=== PATIENT | female | born 1945 | race Caucasian/White ===

== ENCOUNTER 2016-09-23 20:20 | Observation (INO) | payer MEDICARE ==
[~2016-09-23] VITALS: Ht 158.8 cm; Wt 50.5 kg
[~2016-09-23 20:20] MED LIST: AZEL137S11 NS; BETA15OI3 TP; BRIN8DRO OP; CALC-140 PO; DOXY50CA2 PO; IPRA4AER IH; KLO1T PO; LACT1CAP44 PO; LATA2.5D6 BOTH_EYES; LEVO50TA83 PO; METR45GE TOP; PARO40TA47 PO; POTA10CA42 PO; PROP1DRO BOTH_EYES; SALINE NASAL; TRAZ-118 PO; TRIA10.8 NS
[2016-09-23 20:27] VITALS: BP 144/70; PULSE 82; RESP 23; O2SAT 96
--- NOTE | 2016-09-23 20:44 | ED.REPORT ---
HPI-General Illness Date of Service Sep 23, 2016 ED Provider: Davis Serra MD Pt is a 71 y.o. female with a hx of recurrent angioimmunoblastic T-cell lymphoma , HTN, thyroid disease, and anxiety who presents to the ED via EMS accompanied by her after a witnessed seizure prior to arrival. Pt's states that she has been increasingly anxious for the past several days. He states that the pt went to stand up from the couch and proceeded to fall onto her right side and began to tense up, with what he state was seizure like activity. Per EMS pt was reportedly post-ictal for 20minutes and was not communicating, after that time pt became verbal but was confused. EMS states that pt was noticeably improving in their care. Pt denies any memory of the event and denies any current pain, fever, chills, nausea, vomiting, and SOB. She does states that she is anxious. Pt reports one prior seizure that occurred "several years ago", she is not currently on anti-seizure medication. Pt had a chemotherapy treatment 2 days ago. Nursing Notes Stated Complaint: SEIZURE Chief Complaint: Seizure Nursing Notes Reviewed: Yes Allergies: Coded Allergies: amoxicillin trihydrate (Verified Allergy, Severe, RASH, 01/21/16) amoxicillin (Verified Allergy, Unknown, 09/23/16) metronidazole (Verified Allergy, Unknown, 09/23/16) minocycline (Verified Allergy, Unknown, 09/23/16) mirtazapine (Verified Allergy, Unknown, 09/23/16) prednisone (Verified Allergy, Unknown, 09/23/16) Uncoded Allergies: BANDAIDS/TAPES/STERI STRIPS (Allergy, Unknown, 02/09/04) Scheduled Albuterol/Ipratropium (Combivent Respimat Inhal [place]) 120 Spr/4 Gm Inhaler 1 PUFF IH QID Betamethasone Dipropionate (Betamethasone Dipropionate) 15 Gm Oint...g. 15 GM TP BID Brinzolamide/Brimonid Tart (Simbrinza 1%-0.2% Eye Drops) 8 Ml Drops.susp 8 ML OP BID Calcium Carbonate/Vitamin D3 (Calcium + Vitamin D Tablet) 1 Each Tablet 1 EACH PO DAILY Clonazepam (Clonazepam) 1 Mg Tablet 1 MG PO BID Doxycycline Hyclate (Doxycycline Hyclate) 50 Mg Capsule 50 MG PO DAILY Lactobacillus Acidophilus (Acidophilus Lactobacillus) 1 Each Capsule 2 EACH PO BID Latanoprost (Latanoprost) 2.5 Ml Drops 1 GTT BOTH_EYES HS Levothyroxine (Synthroid) 50 Mcg Tablet 50 MCG PO DAILY Metronidazole (Metronidazole Gel) 1 Applic/0.25 Gm Gel 1 APPLIC TOP BID Paroxetine (Paxil) 40 Mg Tablet 60 MG PO HS Potassium Chloride (Potassium Chloride) 10 Meq Capsule.er 20 MEQ PO DAILY TAKE WITH FOOD Trazodone (Trazodone) 100 Mg Tablet 150-200 MG PO HS Scheduled PRN ([Nasal Saline]) 1-2 SPRAY NASAL DAILY PRN PRN For Congestion Azelastine HCl (Azelastine HCl) 137 Mcg/0.137 Ml [place].pump 137 MCG NS DAILY PRN PRN For Congestion Propylene Glycol/Peg 400/Pf (Systane 0.3-0.4% Eye Drops) 1 Each [place] 1 EACH BOTH_EYES DAILY PRN PRN For Eye Irritation Triamcinolone Acetonide (Nasacort) 10.8 Ml [place] 1-2 SPRAYS NS DAILY PRN PRN For Congestion General Time Seen by MD: 20:44 Chief Complaint Seizure Hx Obtained From: Patient, Spouse Arrived By: Ambulance Sudden in Onset?: Yes Onset Occurred: 16 - 30 minutes ago Severity: Current: No pain currently Severity: Maximum: No pain Past Medical History Past Medical History Notes: Oncologist Dr. Quiñones Patient just started romidepsin Past Medical History History of recurrent angioimmunoblastic T-cell lymphoma Mode history of stage II breast cancer in 2002, a more recent history of peripheral T-cell lymphoma diagnosed in 2012 status post 6 cycles of CHOP, with subsequent relapse and a CT scan on October 2015 showing recurrent lymphoma 0cataracts hypertension asthma osteoarthritis anxiety depression beast cancer T-cell lymphoma thyroid disease Past Surgical History Excisional lymph node biopsy of right axillary lymph node. Port-O-cath Family History Noncontributory Smoking History Never Smoker Social History Alcohol Use: Denies alcohol use Drug Use: Denies drug use Other Social History: Good social support, , Local resident Ambulatory Status Independent Review of Systems Full Review of Systems Constitutional: Denies: Chills, Fever Respiratory: Denies: Shortness of breath Cardiovascular: Denies: Chest pain GI: Denies: Abdominal pain, Nausea, Vomiting Musculoskeletal: Denies: Back pain, Neck pain Neurologic: Reports: Confusion, Seizure, Denies: Headache Psychiatric: Reports: Anxiety Complete sys rev & neg: except as marked. Physical Exam Vital Signs Vital Signs Date Time Temp Pulse Resp B/P Pulse Ox O2 Delivery O2 Flow Rate FiO2 09/23/16 20:27 36.7 82 23 144/70 96 Room Air Initial VS: Reviewed Abdomen / GI: No distention Extremities: Vascular intact, Neuro intact Psychiatric: Mood/affect normal, Behavior normal, Normal thought content General/Constitutional: Awake, Alert, No acute distress, Well appearing, Well developed, Well hydrated, Well nourished, Not toxic appearing Head / Eyes: Atraumatic, Normocephalic, PERRL, EOMI Neck: Atraumatic, Supple, Non-tender, No midline vertebral tend, No tracheal deviation No step off or deformity present Respiratory / Chest: Atraumatic, Breath sounds NL, Breath sounds = bilat, No respiratory distress Cardiovascular: Heart rate NL, Heart sounds NL, Cap refill not delayed, Peripheral circulation NL Back: Atraumatic, Inspection NL, Non-tender, No midline vertebral tend Skin: Atraumatic, Warm, Dry, Intact Color / Condition: Positive: Rash present Rash / Lesion Notes: Diffuse red raised rash to RUE from shoulder to wrist Neurologic: Oriented X3, Speech NL Slight left-sided facial droop Subtle left-sided dysmetria Interpretation & Diagnostics Lab Results Interpretation Result Diagram: 09/23/16202309/23/162023 Test 09/23/16 20:24 09/23/16 20:25 White Blood Count 5.3th/mm3 (3.8-10.1) Red Blood Count 4.41mil/mm3 (3.90-5.20) Hemoglobin 14.1g/dL (12.0-15.6) Hematocrit 42.9% (35.0-46.0) Mean Corpuscular Volume 97.3fL (81-100) Mean Corpuscular Hemoglobin 32.0pg (27.0-35.0) Mean Corpuscular Hemoglobin Concent 32.9% (32.0-37.0) Red Cell Distribution Width 13.2% (12.3-15.4) Platelet Count 102bil/L (150-400) Neutrophils (%) (Auto) 60.0% (40-74) Lymphocytes (%) (Auto) 20.9% (14-46) Monocytes (%) (Auto) 14.9% (4-12) Eosinophils (%) (Auto) 3.2% (0-5) Basophils (%) (Auto) 0.8% (0-3) Prothrombin Time 10.6sec (8.1-12.5) Prothromb Time International Ratio 0.99ratio Activated Partial Thromboplast Time 25.7sec (22.8-33.0) Hold Blue Top Tube Received (Received) Sodium Level 139mEq/L (134-144) Potassium Level 4.2mEq/L (3.5-5.2) Chloride Level 99mEq/L (97-108) Carbon Dioxide Level 15mmol/L (18-29) Blood Urea Nitrogen 28mg/dL (8-27) Creatinine 0.90mg/dL (0.57-1.00) Estimat Glomerular Filtration Rate 88mL/min (>59) Glucose Level 128mg/dL (60-99) Calcium Level 9.6mg/dL (8.5-10.1) Total Bilirubin 0.4mg/dL (0.0-1.2) Aspartate Amino Transf (AST/SGOT) 22U/L (0-50) Alanine Aminotransferase (ALT/SGPT) 32U/L (0-32) Alkaline Phosphatase 70U/L (25-165) Troponin T 0.010ug/L (0.0-0.011) Total Protein 7.9g/dL (6.4-8.4) Albumin 4.3g/dL (3.4-5.0) Hold [place] Top Tube Received (Received) Alcohols < 10mg/dL (0-10) Hold Purple Top Tube Received (Received) ECG Interpretation Time: 21:21 Interpreted by: ED physician Normal ECG Interpretation: Normal rate (83), Normal sinus rhythm, No acute ischemic changes, Normal QRS, Normal intervals, No change from prior ECGs () CT Head Interpretation CT HEAD WITHOUT CONTRAST CONCLUSION: Mild involutional changes. No acute intracranial abnormality. Radiologist: Naresh Carver MD CT ANGIOGRAM HEAD CONCLUSION: No evidence of an aneurysm, significant stenosis or major branch occlusion. CT C-Spine Interpretation CT ANGIOGRAM OF NECK: IMPRESSION: No carotid or verterl artery stenosis, dissection, or occlusion. Re-Eval/Medical Decision Med Decision/Clinical Course 71F w/ possible seizure earlier this evening w/ extended postictal period. CTA w /o evidence of acute stroke, however concern for possible CVA persists and patient would likely benefit from MRI. No obvious alternative etiology that would have provoked her seizure. Plan admission for further eval and mgmt Source of Hx: Old records Time of Eval: 00:08 Re-Evaluation/Progress Note: Pt rechecked. Discussed lab results, imaging, and need for admission. Pt understands and agrees with plan. Consultation : Referral / Consult Name: Jack Francis MD Consulted With: Hospitalist Call Returned at: 00:14 Station Installation Supervisor: Will see patient, Agrees with eval, Agrees with plan, Accepts admit Note: Discussed pt condition, accepts admit. Counseled Regarding: Diagnosis, Lab results, Need for follow-up, When/why to return to ED Discharge & Departure Primary Impression: Seizure Disposition: ADMITTED TO HOSPITAL Discharge Condition All VS Reviewed: Yes Condition: Improved Referrals: Wendy Carorll MD (PCP) Mateoibe Attestation Portions of this note were transcribed by Jazmin Steele. I, Dr. Serra personally performed the history, physical exam and medical decision-making; I reviewed and confirmed the accuracy of the information in the transcribed note. Signed by: Alicia Benz, 09/24/2016 and 0016 copies to: Wendy Carroll MD, William B MD Sep 23, 2016 20:44 JAZMIN STEELE Sep 23, 2016 20:52
[2016-09-23] MEDS ORDERED: 0.9% Sodium Chloride 1,000 ML IV ONE (21:01)
[2016-09-23 21:13] LABS: BASOPHILS % (AUTO) 0.8 % (0-3); EOSINOPHILS % (AUTO) 3.2 % (0-5); MONOCYTES % (AUTO) 14.9 % (4-12); Mean Corpuscular Volume 97.3 fL (81-100); Platelet Count 102 bil/L (150-400)
[2016-09-23 21:20] LABS: INR 0.99 ratio
[2016-09-24] VITALS (7 sets, daily range): BP systolic 135–151; BP diastolic 80–88; PULSE 66–83; RESP 14–18; O2SAT 94–98
[2016-09-24] MEDS ORDERED: 0.9% Sodium Chloride 1,000 ML IV SCH (01:47)
[2016-09-24] MEDS ORDERED: Polyethylene Glycol (PEG) 17 Gm Powder PO PRN (01:50)
[2016-09-24] MEDS ORDERED: Alum-Mag Hydrox-Simeth 30 mL Suspension PO PRN (01:50)
[2016-09-24] MEDS ORDERED: Ondansetron 2 mg/mL 2 mL Inj IVPUSH PRN (01:50)
--- NOTE | 2016-09-24 02:06 | PCM.HPMED ---
Subjective Date of Service Sep 24, 2016 Primary Provider: Admitting Physician: Primary Care Physician: Wendy Carroll MD Attending Physician: Admit Status: From the Emergency Department Chief Complaint: Seizure History of Present Illness: This is a 71-year-old female with past medical history significant for seizure 20 years ago and was on Dilantin for several years, recurrent angioimmunoblastic T-cell lymphoma currently on chemotherapy, estrogen receptor positive left breast cancer in remission, generalized anxiety disorder, hypothyroidism, and hypertension who presents after observed seizure. The patient does not recall the seizure. She states that over the last 48 hours she has been tremulous and fatigued. She also describes a frontal headache that is achy, with severity of 6/10, and not associated with phonophobia or photophobia. Family members are not present to describe the seizure but emergency department notes state that she went to stand up from the couch and fell onto her right side and then began to tense up. EMS reported 20 minutes of postictal state with gradual return to baseline. Of note her last chemotherapy treatment was 2 days ago. She denies any chest pain or pressure, shortness of breath, diaphoresis, nausea, vomiting, diarrhea, constipation, dysuria. In the emergency department initial vital signs were temperature 36.7 Celsius, pulse 82, respiratory rate 23, blood pressure 144/70, satting at 96% on room air. CBC showed platelet count of 102 and no other concerning abnormalities. CMP showed carbon dioxide 15, BUN 28, creatinine 0.90, glucose 128, troponin 0.010. PT 10.6, INR 0.99. Alcohol less than 10. A bolus of NS and Ativan was given in the ED. Review of Systems: A comprehensive review of systems was conducted with the patient and found to be negative except as above in the History of Present Illness. Allergies Coded Allergies: amoxicillin trihydrate (Verified Allergy, Severe, RASH, 01/21/16) amoxicillin (Verified Allergy, Unknown, 09/23/16) metronidazole (Verified Allergy, Unknown, 09/23/16) minocycline (Verified Allergy, Unknown, 09/23/16) mirtazapine (Verified Allergy, Unknown, 09/23/16) prednisone (Verified Allergy, Unknown, 09/23/16) Uncoded Allergies: BANDAIDS/TAPES/STERI STRIPS (Allergy, Unknown, 10/20/04) Home Medications Acidophilus capsule take 2 Capsule by Oral route 2 times every day azelastine 137 mcg (0.1 %) nasal spray aerosol spray 1 spray by intranasal route daily as needed for congestion Calcium 500 + D 500 mg (1,250 mg)-200 unit tablet 1 daily clonazepam 1 mg tablet take 1 tablet by mouth 2 times daily Combivent 18 mcg-103 mcg/Actuation Aerosol Inhaler inhale 2 puff by INHALATION route 4 times every day as needed hydroxyzine HCl 25 mg tablet take 1 tablet by oral route every 6 hours as needed for anxiety latanoprost 0.005 % eye drops instill 1 drop by ophthalmic route every day into affected eye(s) in the evening levothyroxine 50 mcg tablet TAKE 1 TABLET BY MOUTH DAILY for thyroid Paxil 20 mg tablet take 3 tablet (60MG) by oral route every day for mood potassium chloride ER 10 mEq capsule,extended release take 2 capsule by ORAL route every day with food Simbrinza 1 %-0.2 % eye drops,suspension instill 1 drop by ophthalmic route 2 times every day into affected eye(s) Systane 0.4 %-0.3 % eye drops daily trazodone 100 mg tablet take 1.5 tablets by ORAL route every evening after meal for sleep/mood triamcinolone acetonide 55 mcg nasal spray aerosol 1 spray in each nostril as needed for congestion may give 1-2 sprays PRN vancomycin 125 mg capsule take 125mg by mouth every 72 hours for c diff PMH Recurrent angioimmunoblastic T-cell lymphoma. Current regimen is romidepsin 10 mg/m2 IV every two weeks.She was previously treated with six cycles of first- line CHOP chemotherapy ending in April 2013 and subsequently had widespread systemic relapse in October 2015. History of stage II estrogen receptor positive left breast cancer status post lumpectomy, CMF chemotherapy, radiotherapy, and 5 years of endocrine therapy including tamoxifen and later Aromasin all completed in 2008 without recurrence. Generalized anxiety disorder Hypothyroidism Hypertension Depression Glaucoma Asthma Osteoarthritis Insomnia Some outpatient notes mention Sicca symptoms without overt diagnosis of Sicca syndrome Surgical History Appendectomy. Sinus surgery. Left lumpectomy. Right axillary lymphadenectomy with left subclavian venous Port-A-Cath placement performed by Dr. Jimmie Gomez on 11/15/2015. Family History Father with melanoma and hypertension. Sister with breast cancer in remission status post bilateral mastectomy. Mother who of congestive heart failure. Denies family history of colon cancer, IBD, or celiac disease. Social History Hx Alcohol Use: No Hx Substance Use: No Hx Tobacco Use: No Smoking Status: Never Smoker Exam Vital Signs Vital Sign - Last Date Time Temp Pulse Resp B/P Pulse Ox O2 Delivery O2 Flow Rate FiO2 09/23/16 20:27 36.7 82 23 144/70 96 Room Air Intake and Output 09/23/16 09/23/16 09/24/16 Cumulative From/Thru 15:00 23:00 07:00 09/23/16 20:27 - 09/23/16 21:29 Intake Total 1000 ml 1000 ml Balance 1000 ml 1000 ml Intake IV Total 1000 ml 1000 ml Exam General: No acute distress, well-developed, well-nourished, appropriately interactive HEENT: Normocephalic, atraumatic. External ears without defect. Pupils equal, round, and reactive to light and accommodation. Anicteric sclerae, moist conjunctivae, and no lid lag. Oropharynx free of erythema and cobble stoning with moist mucosa. Neck: Supple with full range of motion. No jugular venous distension. No bruits. No lymphadenopathy or thyromegaly. Cardiovascular: Regular rate and rhythm with no murmurs, rubs, or gallops appreciated Chest: srinivasa-cath left, no erythema or tenderness to palpation in area around cath.. Pulmonary: Clear to auscultation bilaterally with no crackles, wheezes, or rhonchi. Normal respiratory effort with no use of accessory muscles. Abdomen: Bowel tones present. Soft, nontender, nondistended. No hepatosplenomegaly or masses appreciated. Extremities: No clubbing, cyanosis, edema, or lymphadenopathy appreciated. Skin: Normal temperature, turgor, and texture; no rash, ulcers, or subcutaneous nodules appreciated. Neurological: Cranial nerves grossly intact. Normal muscle strength, tone, and bulk. Reflexes, coordination, and sensory function within normal limits. No known gait impairment. Jarrell to heel test within normal limits. No upper or lower extremity drift. Sensation throughout upper and lower extremity intact. Psychiatric: Normal mood and affect. Alert and oriented to person, place, and time. Lab and Diagnostics Result Diagram: 09/23/16202309/23/162023 X-Rays, CTs and MRIs CT HEAD WITHOUT CONTRAST CONCLUSION: Mild involutional changes. No acute intracranial abnormality. CT ANGIOGRAM HEAD CONCLUSION: No evidence of an aneurysm, significant stenosis or major branch occlusion. Radiologist: Naresh Carver MD Assessment & Plan This is a 71-year-old female with past medical history significant for seizure 20 years ago and was on Dilantin for several years, recurrent angioimmunoblastic T-cell lymphoma on chemotherapy, estrogen receptor positive left breast cancer in remission, generalized anxiety disorder, hypothyroidism, and hypertension who presents after observed seizure. Patient did describe being tremulous and fatigued over the last several days. We will check thyroid levels. Cause of seizure includes: electrolyte disturbance, hyperthyroidism, withdrawal (patient states she takes her benzodiazepine everyday), drug induced , intracranial (abscess, cva, hemorrhage). CT of head showed no concerning abnormality. Seizure, present admission, ongoing: -Based on family members descriptions to emergency department physician this was most likely a seizure. -We will continue to monitor overnight. -Ativan if seizure recurs. -Consider neurology referral. -MRI seizure protocol ordered. -Consider EEG in am. Hypothyroidism, present on admission: -Free T4 and TSH ordered. -Continue levothyroxine 50 g tablet Generalized anxiety disorder, present on admission, ongoing: -Patient was described as having significant anxiety over the last several days. -Consider adding anxiolytic in the morning. -Continue home clonazepam, Paxil. Recurrent angioimmunoblastic T-cell lymphoma, present on admission: -Patient last had chemo two days ago. -Will need follow-up as outpatient. Glaucoma, present on admission, ongoing: -Continue home meds Sleep disturbance, present on admission, stable: -Continue trazodone Med req not complete yet. Day team will need to complete. Hold on DVT prophylaxis. Patient is admitted under observation status with expected length of stay less than 2 midnights due to severity of presenting symptoms, risk of adverse event, and complexity of treatment plan. Pain Evaluation: Adequate Pain Control Resuscitation Status: DNR/DNI:Do Not Resuscitate/Intubate Attending Statement The patient was seen and examined together with Dr. Steward on 09/24 and I agree with the history, exam and plan as outlined in the note above. Jurgen Steward DO Sep 24, 2016 01:00 Jack Francis MD Sep 24, 2016 03:17
[2016-09-24 03:18] LABS: APPEARANCE,URINE CLEAR (CLEAR,HAZY); COLOR,URINE YELLOW (YELLOW); PH,URINE 6.5 (5.0-8.0); UROBILINOGEN,URINE NORMAL (NORMAL)
--- NOTE | 2016-09-24 03:18 | NUR ---
ADMIT; 71 yr old female admitted to room 1008 via gurney at approx. 0300. Pt doesn't remember seizure incident at home which brought her here. See admit screens. Pt states feels "shaky". Received ativan in e.r. Seizure pads on bed. Alert and oriented. Face symmetrical, tongue midline. MED REC; pt unable to verify med rec. list she had with her - stated didn't have her glasses and still shaky from seizure incident. PLAN; leave message/pass on to day shift rn that med rec needs to be verified. Addendum: 09/24/16 at 0352 by NAM GUPTA RN Pt. states recent chemo about 3 days ago.
[2016-09-24 03:19] LABS: OCCULT BLOOD,URINE TRACE (NEGATIVE)
[2016-09-24] MEDS ORDERED: LORazepam 1 mg Tablet PO ONE ×2 (04:20→11:15)
--- NOTE | 2016-09-24 04:26 | NUR ---
PSYCH; pt c/o feeling "shaky". Requesting something for her nerves. Hospitalist "khadijah paged". No seizure activity noted.
--- NOTE | 2016-09-24 06:11 | NUR ---
PSYCH; pt states feels more relaxed now, but is concerned of panicky feelings if she has an mri.
[2016-09-24] MEDS ORDERED: HYDR-656 PO (08:38)
--- NOTE | 2016-09-24 09:01 | DRSVH ---
PROCEDURE: CT ANGIO HEAD AND NECK (P) INDICATIONS: SEIZURE, CONFUSION TECHNIQUE: Pre-contrast 4.5 mm thick sections acquired from the foramen magnum to the vertex. After the adminis tration of intravenous contrast, 1 mm thick sections acquired from the aortic arch through the [place]. Post-contrast 4.5 mm thick sections then re-acquired from the foramen magnum to the vert ex. 3-dimensional [id number]-thsmtlijpu (MIP) and/or volume rendering reformats were acquired of the central intracranial vasculature and neck separately. For radiation dose reduction, the foll owing was used: automated exposure control, adjustment of mA and/or kV according to patient size. COMPARISON: None. FINDINGS: Image quality: Excellent. BRAIN: CSF spaces: Ventricles are normal in size and shape. Basal cisterns are patent. No extra-axial flu id collections. Brain: No midline shift. No intracranial bleeds or masses. [place]-white matter interface appears int act. Skull and face: Calvarium and facial bones appear intact, without suspicious lesions. Orbits appear normal. Sinuses: Sinuses and mastoids are clear. HEAD CT ANGIOGRAPHY: Anterior circulation: Intracranial internal carotid arteries are normal in size and flow. Atheroscle rotic calcifications noted in the cavernous segments of the internal carotid arteries bilaterally whi ch do not cause measurable stenosis. The flow within the paired anterior cerebral arteries is normal. 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 The flow wit hin the middle cerebral arteries is normal and symmetric. The anterior communicating artery is seen. No aneurysms are seen. Posterior circulation: Visualized portions of the vertebral arteries demonstrate normal caliber, and join to form a normal appearing basilar artery. Flow within the posterior cerebral arteries is norm al and symmetric. No aneurysms are seen. NECK CT ANGIOGRAPHY: Carotid system: The great vessels demonstrate bovine variant anatomy as they arise from the aortic a rch. The origins of the common carotid arteries appear patent. The common carotid arteries demonstr ate normal caliber and courses. The bifurcation regions are both widely patent. The internal caroti d arteries demonstrate normal calibers and courses. Posterior circulation: The origins of the vertebral arteries both appear widely patent. The more putnam perior extracranial portions of both vertebral arteries also demonstrate normal courses and calibers. They join to form a normal appearing basilar artery. Soft tissues: Left chest wall Port-A-Cath is noted. Visualized neck soft tissues demonstrate no susp icious abnormalities. Pleural-parenchymal scarring noted in the apex of the left lung. Bones: Spine degenerative disc disease and facet arthropathy. No suspicious bony lesions. Visualize d cervical spine appears normally aligned. IMPRESSION: 1. No acute intracranial disease process. 2. No evidence of large vessel occlusion. No hemodynamically significant vascular stenosis. Dictated by: Gunjan Castro MD, PhD on 09/24/2016 at 8:51 Approved by: Gunjan Castro MD, PhD on 09/24/2016 at 9:00
--- NOTE | 2016-09-24 10:14 | NUR ---
Case Management: LIRIANO and Medicare Part D Pamphlet delivered and explained to pt. Signed original placed in chart. Copy left at bedside. Carrie Flores RN
[2016-09-24] MEDS ORDERED: levETIRAcetam 500 mg Tablet PO STA (11:24)
[2016-09-24] MEDS: LORazepam 0.5 mg Tablet PO PRN ×3 (11:45→20:46)
[2016-09-24] MEDS: Heparin 5,000 Unit/mL Inj SUBQ SCH ×2 (11:48→17:38)
--- NOTE | 2016-09-24 13:33 | DRSVH ---
PROCEDURE: MRI SEIZURE BRAIN WITH AND WITHOUT CONTRAST ([id number]) INDICATIONS: Seizure TECHNIQUE: Noncontrast axial T1 spin echo, axial T2 fast spin echo, sagittal and axial FLAIR, axial gradient ech o, axial diffusion and ADC, coronal thin-slice T2 FSE through the brain. Optional contrast, followed by axial and coronal 3D VIBE or T1 spin echo with fat saturation sequences through the brain. COMPARISON: CTA brain and neck 09/23/2016; FINDINGS: Image quality: Excellent. CSF spaces: Ventricles are normal in size and shape. Basal cisterns are patent. No extra-axial flu id collections. Brain: No intracranial bleeds or mass effects. No abnormal intracranial enhancement. Monteiro-white ma tter interface appears intact. Diffusion weighted images demonstrate no acute ischemic insults. Ther e are increased flair signal changes in the left basal ganglia and scattered bilateral frontoparietal lobes without associated restricted diffusion or contrast-enhancement. Brainstem appear normal. Nor mal intravascular flow voids are present. The hippocampal regions appear normal and symmetric in mor phology. Skull and face: Calvarial marrow signal is normal. Orbits appear normal. Sinuses: Sinuses and mastoids are clear. IMPRESSION: 1. No intracranial mass lesion or abnormal contrast enhancement. No acute infarct. 2. Left sided increased T2 signal changes likely related to chronic ischemic changes Dictated by: Jose Miguel Ware M.D. on 09/24/2016 at 13:19 Approved by: Jose Miguel Ware M.D. on 09/24/2016 at 13:31
--- NOTE | 2016-09-24 16:27 | NUR ---
Social Work: Initial Assessment D: EMR reviewed. Pt is a 71 y/o female [place] for seizure. SW met with pt at bedside to conduct initial assessment. Pt was alert and oriented x3. SW explained role and wrote phone number on white board. Pt confirmed she has completed DPOA/advanced directive ppw and SW encouraged pt to provide a copy to the hospital. Pt's insurance is [employer] and PCP is Wendy Carroll MD. Pt's primary contact is her spouse Nabeel Gentile, , who can be contacted for discharge planning. Pt has hx at [facility]. Pt has no hx of HH. Pt does not have LTC insurance or VA benefits. Pt is independent with ADLs and not not own or use any DME. Pt drives. Pt is independent at baseline. Pt lives with her spouse in a single-story home with 3 steps to enter in [place]. Pt confirmed her spouse will provide transport home via POV when pt is medically stable. SW does not anticipate any discharge needs at this time but will continue to follow if needs arise. A: Pt who is independent at baseline. P: Pt confirmed her spouse will provide transport home via POV when pt is medically stable. SW does not anticipate any discharge needs at this time but will continue to follow if needs arise. ALDAIR Collier Addendum: 09/24/16 at 1634 by VEL WOLF SS Amended: Links added.
[2016-09-24] MEDS ORDERED: Albuterol-Ipratropium 3 mL Inhalation Solution NEB PRN (19:40)
--- NOTE | 2016-09-24 19:41 | NUR ---
Activity Pt very shaky this am, stated she was afraid she was going to have another seizure, order received for Ativan, administered 1mg PO Ativan prior to MRI, Pt tolerated the MRI OR. Shakiness improved throughout shift, pt up SBA to Commode, EGG done this shift. No left sided face droop noted any more, neuro checks fine.
[2016-09-24] MEDS: levETIRAcetam 500 mg Tablet PO SCH (20:46)
[2016-09-24] MEDS ORDERED: Dorzolamide 2% 10 mL Ophthalmic Solution RIGHT_EYE SCH (22:45)
[2016-09-24] MEDS ORDERED: Brimonidine 0.2% 5 mL Ophthalmic Solution RIGHT_EYE SCH (22:46)
[2016-09-25] MEDS: Heparin 5,000 Unit/mL Inj SUBQ SCH ×2 (00:08→07:58)
--- NOTE | 2016-09-25 00:17 | PROCED ---
[address] [address] EEG PATIENT: NAWAF DEL ROSARIO : 1945 MR#: [id number] ADMIT: 09/24/2016 JOB ID: [id number] DATE OF SERVICE: 09/24/2016 HISTORY: The patient is a 71-year-old woman with a history of seizures with spells two days ago. TECHNICAL DESCRIPTION: This digital EEG was recorded using 25 scalp and ear, and 2 EKG electrodes. It was reviewed in bipolar and referential montages following reformatting of the 10-20 International Electrode Placement System. During the recording, the patient was noted to be awake and briefly drowsy. No sleep was appreciated. There was abundant myogenic and movement artifact. Her background activity was composed of an 8 to 8.5 hertz, 10-20 microvolt, symmetrical and reactive posterior dominant rhythm that attenuated with eye opening. The rest of the background was composed of low voltage faster frequencies. There were no focal, lateralized, or epileptiform discharges noted. There were no seizures seen. There was abundant myogenic and movement artifact which limits the study. Hyperventilation was not performed. Photic stimulation from 1-30 hertz did not elicit any photic driving response. There was no sleep appreciated. The EKG rhythm strip revealed a heart rate of 60 to 80 beats per minute with no apparent arrhythmias. IMPRESSION: This electroencephalogram performed in the awake and drowsy states is within normal limits. It is a limited study secondary to abundant myogenic and movement artifact. Clinical correlation is advised. VICKYD
[2016-09-25 00:23] VITALS: PULSE 79
--- NOTE | 2016-09-25 05:01 | NUR ---
Activity Pt up to BSC this sift without shakiness. Using call light appropriately for help. Pt had 0 seizure activity this shift. She did have episode of severe anxiety at start of shift and began crying, she talked about her cancer and that it is not curable and she is scared. Rec'd PRN ativan per her request and was able to sleep all night, waking only for care. 0 c/o pain. care continues
[2016-09-25 05:14] VITALS: BP 125/81; PULSE 65; RESP 18; O2SAT 94
[2016-09-25] MEDS: LORazepam 0.5 mg Tablet PO PRN (06:00)
[2016-09-25] MEDS: levETIRAcetam 500 mg Tablet PO SCH (07:57)
[2016-09-25 08:10] VITALS: PULSE 70; RESP 18; O2SAT 98
--- NOTE | 2016-09-25 08:23 | PCM.DIMED ---
Discharge Instructions Date of Service Sep 25, 2016 Dates of Hospitalization Sep 24, 2016 at 01:33 Discharge Diagnosis Discharge Diagnosis 1- recurrent seizure 2- hypothyroidism 3- anxiety disorder 4- recurrent T-cell lymphoma Activity Discharge Activity: Limited until seen by PCP (no driving vehicle until cleared by your doctor or neurologist) Patient Instructions Patient Instructions Follow up with Dr. Carroll next week. Also you need to follow up with our neurologist, Dr. Banerjee or Dr. Mcdonald, the nurse here will help you with numbers. Follow-up in: 1 week Dragan Duncan MD Sep 25, 2016 08:23
[2016-09-25] MEDS ORDERED: KEP500TA PO (08:24)
[2016-09-25] MEDS ORDERED: Dorzolamide 2% 10 mL Ophthalmic Solution BOTH_EYES SCH (08:30)
[2016-09-25] MEDS ORDERED: Brimonidine 0.2% 5 mL Ophthalmic Solution BOTH_EYES SCH (08:30)
--- NOTE | 2016-09-25 08:31 | PCM.DC.MED ---
Discharge Summary Date of Service Sep 25, 2016 Dates of Hospitalization Date of Hospital Admission Sep 24, 2016 at 01:33 Date of Discharge: Sep 25, 2016 Providers: Admitting Physician: Jack Francis MD Primary Care Physician: Wendy Carroll MD Attending Physician: Jack Francis MD Diagnosis at Time of Discharge Diagnosis at Time of Discharge 1- recurrent seizure 2- hypothyroidism 3- anxiety disorder 4- recurrent T-cell lymphoma Procedures XRay, CTs & MRIs CT HEAD WITHOUT CONTRAST CONCLUSION: Mild involutional changes. No acute intracranial abnormality. CT ANGIOGRAM HEAD CONCLUSION: No evidence of an aneurysm, significant stenosis or major branch occlusion. Radiologist: Naresh Carver MD PROCEDURE: MRI SEIZURE BRAIN WITH AND WITHOUT CONTRAST ([id number]) INDICATIONS: Seizure TECHNIQUE: Noncontrast axial T1 spin echo, axial T2 fast spin echo, sagittal and axial FLAIR, axial gradient echo, axial diffusion and ADC, coronal thin-slice T2 FSE through the brain. Optional contrast, followed by axial and coronal 3D VIBE or T1 spin echo with fat saturation sequences through the brain. COMPARISON: CTA brain and neck 09/23/2016; FINDINGS: Image quality: Excellent. CSF spaces: Ventricles are normal in size and shape. Basal cisterns are patent. No extra-axial fluid collections. Brain: No intracranial bleeds or mass effects. No abnormal intracranial enhancement. Monteiro-white matter interface appears intact. Diffusion weighted images demonstrate no acute ischemic insults. There are increased flair signal changes in the left basal ganglia and scattered bilateral frontoparietal lobes without associated restricted diffusion or contrast-enhancement. Brainstem appear normal. Normal intravascular flow voids are present. The hippocampal regions appear normal and symmetric in morphology. Skull and face: Calvarial marrow signal is normal. Orbits appear normal. Sinuses: Sinuses and mastoids are clear. IMPRESSION: 1. No intracranial mass lesion or abnormal contrast enhancement. No acute infarct. 2. Left sided increased T2 signal changes likely related to chronic ischemic changes Dictated by: Jose Miguel Ware M.D. on 09/24/2016 at 13:19 Other Diagnostics DATE OF SERVICE: 09/24/2016 HISTORY: The patient is a 71-year-old woman with a history of seizures with spells two days ago. TECHNICAL DESCRIPTION: This digital EEG was recorded using 25 scalp and ear, and 2 EKG electrodes. It was reviewed in bipolar and referential montages following reformatting of the 10-20 International Electrode Placement System. During the recording, the patient was noted to be awake and briefly drowsy. No sleep was appreciated. There was abundant myogenic and movement artifact. Her background activity was composed of 8 to 8.5 hertz, 10-20 microvolt, symmetrical and reactive posterior dominant rhythm that attenuated with eye opening. The rest of the background was composed of low voltage faster frequencies. There were no focal, lateralized, or epileptiform discharges noted. There were no seizures seen. There was abundant myogenic and movement artifact which limits the study. Hyperventilation was performed with fair effort, with no slowing of the background rhythm or frontally predominant buildup. Photic stimulation from 1-30 hertz did not elicit any photic driving response. There was no sleep appreciated. The EKG rhythm strip revealed a heart rate of 60 to 80 beats per minute with no apparent arrhythmias. IMPRESSION: This electroencephalogram performed in the awake and drowsy states is within normal limits. It is a limited study secondary to abundant myogenic and movement artifact. If clinically indicated, a repeat study capturing the transition to and from sleep, as well as sleep, is recommended. Clinical correlation is advised. 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 The patient does not recall the seizure. She states that over the last 48 hours she has been tremulous and fatigued. She also describes a frontal headache that is achy, with severity of 6/10, and not associated with phonophobia or photophobia. Family members are not present to describe the seizure but emergency department notes state that she went to stand up from the couch and fell onto her right side and then began to tense up. EMS reported 20 minutes of postictal state with gradual return to baseline. Of note her last chemotherapy treatment was 2 days ago. She denies any chest pain or pressure, shortness of breath, diaphoresis, nausea, vomiting, diarrhea, constipation, dysuria. In the emergency department initial vital signs were temperature 36.7 Celsius, pulse 82, respiratory rate 23, blood pressure 144/70, satting at 96% on room air. CBC showed platelet count of 102 and no other concerning abnormalities. CMP showed carbon dioxide 15, BUN 28, creatinine 0.90, glucose 128, troponin 0.010. PT 10.6, INR 0.99. Alcohol less than 10. A bolus of NS and Ativan was given in the ED. Hospital Course This is a 71-year-old female with past medical history significant for seizure 20 years ago and was on Dilantin for several years, recurrent angioimmunoblastic T-cell lymphoma on chemotherapy, estrogen receptor positive left breast cancer in remission, generalized anxiety disorder, hypothyroidism, and hypertension who presents after observed seizure. Patient did describe being tremulous and fatigued over the last several days. We will check thyroid levels. Cause of seizure includes: electrolyte disturbance, hyperthyroidism, withdrawal (patient states she takes her benzodiazepine everyday), drug induced , intracranial (abscess, cva, hemorrhage). CT of head showed no concerning abnormality. Seizure, present admission, resolved: -Based on family members descriptions to emergency department physician this was most likely a seizure. -We will continue to monitor overnight. -Ativan if seizure recurs. -MRI seizure protocol unremarkable -EEG unrevealing, follow up eehg out patient recommended -discussed with Dr Banerjee, start kepra 500 bid, out patient neurology follow up recommended. = discharge patient home today Hypothyroidism, present on admission: -Free T4 and TSH -Continue levothyroxine 50 g tablet Generalized anxiety disorder, present on admission, ongoing: -Patient was described as having significant anxiety over the last several days. -Consider adding anxiolytic in the morning. -Continue home clonazepam, Paxil. Recurrent angioimmunoblastic T-cell lymphoma, present on admission: -Patient last had chemo two days ago. -Will need follow-up as outpatient. Glaucoma, present on admission, ongoing: -Continue home meds Sleep disturbance, present on admission, stable: -Continue trazodone Med req not complete yet. Day team will need to complete. Hold on DVT prophylaxis. Patient is admitted under observation status with expected length of stay less than 2 midnights due to severity of presenting symptoms, risk of adverse event, and complexity of treatment plan. Exam Vital Signs (Last) Date Time Temp Pulse Resp B/P Pulse Ox O2 Delivery O2 Flow Rate FiO2 09/25/16 05:14 36.9 65 18 125/81 94 Room Air Exam Skin; no rash CV; regular no murmur Resp; clear GI; soft non acute Neuro; 2-12 intact, no focal motor or sensory defects noted Test 09/23/16 20:24 09/23/16 20:25 09/24/16 02:56 White Blood Count 5.3th/mm3 (3.8-10.1) Red Blood Count 4.41mil/mm3 (3.90-5.20) Hemoglobin 14.1g/dL (12.0-15.6) Hematocrit 42.9% (35.0-46.0) Mean Corpuscular Volume 97.3fL (81-100) Mean Corpuscular Hemoglobin 32.0pg (27.0-35.0) Mean Corpuscular Hemoglobin Concent 32.9% (32.0-37.0) Red Cell Distribution Width 13.2% (12.3-15.4) Platelet Count 102bil/L (150-400) Neutrophils (%) (Auto) 60.0% (40-74) Lymphocytes (%) (Auto) 20.9% (14-46) Monocytes (%) (Auto) 14.9% (4-12) Eosinophils (%) (Auto) 3.2% (0-5) Basophils (%) (Auto) 0.8% (0-3) Prothrombin Time 10.6sec (8.1-12.5) Prothromb Time International Ratio 0.99ratio Activated Partial Thromboplast Time 25.7sec (22.8-33.0) Hold Blue Top Tube Received (Received) Sodium Level 139mEq/L (134-144) Potassium Level 4.2mEq/L (3.5-5.2) Chloride Level 99mEq/L (97-108) Carbon Dioxide Level 15mmol/L (18-29) Blood Urea Nitrogen 28mg/dL (8-27) Creatinine 0.90mg/dL (0.57-1.00) Estimat Glomerular Filtration Rate 88mL/min (>59) Glucose Level 128mg/dL (60-99) Calcium Level 9.6mg/dL (8.5-10.1) Total Bilirubin 0.4mg/dL (0.0-1.2) Aspartate Amino Transf (AST/SGOT) 22U/L (0-50) Alanine Aminotransferase (ALT/SGPT) 32U/L (0-32) Alkaline Phosphatase 70U/L (25-165) Total Creatine Kinase 85U/L (21-215) Troponin T 0.010ug/L (0.0-0.011) Total Protein 7.9g/dL (6.4-8.4) Albumin 4.3g/dL (3.4-5.0) Thyroid Stimulating Hormone (TSH) 5.410uIU/mL (0.450-4.500) Free Thyroxine 1.05ng/dL (0.82-1.77) Hold Vale Top Tube Received (Received) Alcohols < 10mg/dL (0-10) Hold Purple Top Tube Received (Received) Urine Color Yellow (YELLOW) Urine Appearance Clear (CLEAR,HAZY) Urine pH 6.5 (5.0-8.0) Urine Specific [place] 1.039 (1.003-1.035) Urine Protein Negativemg/dL (NEG,TRACE) Urine Glucose (UA) Negativemg/dL (NEGATIVE) Urine Ketones Negativemg/dL (NEGATIVE) Urine Occult Blood Trace (NEGATIVE) Urine Nitrite Negative (NEGATIVE) Urine Bilirubin Negative (NEGATIVE) Urine Urobilinogen Normalmg/dL (NORMAL) Urine Leukocyte Esterase Negative (NEGATIVE) Urine RBC 0-2/hpf (0-2) Urine WBC 0-5/hpf (0-5) Urine Epithelial Cells Occasional/hpf (NONE-MOD) Urine Crystals None seen (NONE SEEN) Urine Bacteria None/hpf (NONE-FEW) Urine Hyaline Casts None/lpf (NONE) Urine Granular Casts None seen (NONE SEEN) Urine Waxy Casts None seen (NONE SEEN) Urine Red Blood Cell Casts None seen (NONE SEEN) Urine White Blood Cell Casts None seen (NONE SEEN) Urine Mucus None seen (None Seen) Urine Trichomonas None seen (NONE SEEN) Urine Yeast None (NONE SEEN) Urine Culture Reflexed Not indicated Discharge Medications Discharge Medications Albuterol/Ipratropium (Combivent Respimat Inhal [place]) 120 Spr/4 Gm Inhaler 1 PUFF IH QID (Reported) Betamethasone Dipropionate (Betamethasone Dipropionate) 15 Gm Oint...g. 15 GM TP BID (Reported) Brinzolamide/Brimonid Tart (Simbrinza 1%-0.2% Eye Drops) 8 Ml Drops.susp 8 ML OP BID (Reported) Calcium Carbonate/Vitamin D3 (Calcium + Vitamin D Tablet) 1 Each Tablet 1 EACH PO DAILY (Reported) Clonazepam (Clonazepam) 1 Mg Tablet 1 MG PO BID (Reported) Lactobacillus Acidophilus (Acidophilus Lactobacillus) 1 Each Capsule 2 EACH PO BID (Reported) Latanoprost (Latanoprost) 2.5 Ml Drops 1 GTT BOTH_EYES HS (Reported) Levetiracetam (Keppra) 500 Mg Tablet 500 MG PO BID Prescribed by: Dragan MADDOX MD Levothyroxine (Synthroid) 50 Mcg Tablet 50 MCG PO DAILY (Reported) Metronidazole (Metronidazole Gel) 1 Applic/0.25 Gm Gel 1 APPLIC TOP BID ( Reported) Paroxetine (Paxil) 40 Mg Tablet 60 MG PO HS (Reported) Potassium Chloride (Potassium Chloride) 10 Meq Capsule.er 20 MEQ PO DAILY ( Reported) TAKE WITH FOOD Trazodone (Trazodone) 100 Mg Tablet 150-200 MG PO HS (Reported) As needed ([Nasal Saline]) 1-2 SPRAY NASAL DAILY PRN PRN For Congestion (Reported) Propylene Glycol/Peg 400/Pf (Systane 0.3-0.4% Eye Drops) 1 Each Droperette 1 EACH BOTH_EYES DAILY PRN PRN For Eye Irritation (Reported) Triamcinolone Acetonide (Nasacort) 10.8 Ml [place] 1-2 SPRAYS NS DAILY PRN PRN For Congestion (Reported) hydrOXYzine Hcl (HydrOXYzine Hcl) 25 Mg Tablet 25 MG PO TID PRN PRN For Anxiety (Reported) Followup Plan Discharge Activity: Limited until seen by PCP (no driving vehicle until cleared by your doctor or neurologist) Patient Instructions Follow up with Dr. Carroll next week. Also you need to follow up with our neurologist, Dr. Banerjee or Dr. Mcdonald, the nurse here will help you with numbers. Follow-up in: 1 week Attending Statement 35 minutes time spent discharging patient home so far today copies to: Audra Banerjee MD; Wendy Carroll MD, D Geoffrey MD Sep 25, 2016 08:31
[2016-09-25 08:43] VITALS: BP 145/88; PULSE 70; RESP 18; O2SAT 98
--- NOTE | 2016-09-25 09:09 | NUR ---
Social Work: Readiness for Discharge/Discharge D: EMR reviewed. Pt is on day 1 of hospitalization for seizure per H&P. Pt to discharge today, discharge orders are active. SW met with pt at bedside regarding discharge plan. Pt is independent at baseline. Pt confirms that spouse is going to transport home at discharge. Pt denied and questions or concerns related to discharge. Pt to discharge home with spouse to transport via POV. No discharge needs identified. A: Pt who is independent at baseline. P: Pt confirmed her spouse will provide transport home via POV, no discharge needs identified. Sarah Partida, [employer]
--- NOTE | 2016-09-25 10:45 | NUR ---
Discharge Pt discharged from unit, accompanied by her . Pt provided with information on diagnosis, signs to watch for, and follow up. Pt knows to follow up with a neurologist (provided with phone numbers). Port de-accessed by IV therapy. Taken off floor in wheelchair with her belongings.
== END 2016-09-25 10:45 | disposition home or self-care (01) ==
LOC: EDSEX 20:20 → EDUNIT# 20:20 → EDBD 20:20 → SED 20:20 → OSC 09-24 01:33
PROVIDERS: ADMIT Hospitalist; ATTEND Hospitalist
DX: G40.909 Epilepsy, unspecified, not intractable, without status epilepticus (principal); E03.9 Hypothyroidism, unspecified; F41.9 Anxiety disorder, unspecified; C86.5 Angioimmunoblastic T-cell lymphoma; G47.9 Sleep disorder, unspecified; H40.9 Unspecified glaucoma; I10 Essential (primary) hypertension; F32.9 Major depressive disorder, single episode, unspecified; M19.90 Unspecified osteoarthritis, unspecified site; J45.909 Unspecified asthma, uncomplicated; Z88.8 Allergy status to other drugs, medicaments and biological substances; Z85.3 Personal history of malignant neoplasm of breast; Z92.21 Personal history of antineoplastic chemotherapy; Z66 Do not resuscitate
CPT/HCPCS: 36415; 70496; 70498; 70553; 80053; 81000; 82550; 84439; 84443; 84484; 85025; 85610; 85730; 93005; 94799; 95816; 96361; 96374; 96376; 99285; A9585; G0378; G0480; J1644; J2060; J7030; Q9967